=== PATIENT | male | born 1955 | race Caucasian/White ===

== ENCOUNTER → 2022-07-13 | Day surgery (SDC) | payer OTHER ==
[2022-07-09 12:12] VITALS: BMI 42.7
== END | disposition home or self-care (01) ==
LOC: FASU-ENDO 10:35
PROVIDERS: ATTEND Internal Medicine Gastroenterology
PROC: 0DJD8ZZ Inspection of Lower Intestinal Tract, Via Natural or Artificial Opening Endoscopic (ICD-10-PCS; principal; 2022-07-13)
DX: Z53.8 Procedure and treatment not carried out for other reasons (principal)

== ENCOUNTER 2022-08-17 10:03 | Day surgery (SDC) | payer OTHER ==
[2022-08-13 10:05] VITALS: BMI 42.6
[~2022-08-17 10:03] MED LIST: LACTATED RINGERS SOLUTION 1,000 ML IV SCH
[2022-08-17 11:22] VITALS: TEMP 97.3
[2022-08-17 12:45] VITALS: RESP 18
[2022-08-17 12:46] VITALS: BP 145/70; PULSE 68
== END 2022-08-17 13:11 | disposition home or self-care (01) ==
LOC: FASU-ENDO 10:03
PROVIDERS: ATTEND Internal Medicine Gastroenterology
PROC: 0DBL8ZX Excision of Transverse Colon, Via Natural or Artificial Opening Endoscopic, Diagnostic (ICD-10-PCS; 2022-08-17)
PROC: 3E0H8KZ Introduction of Other Diagnostic Substance into Lower GI, Via Natural or Artificial Opening Endoscopic (ICD-10-PCS; 2022-08-17)
PROC: 0DBK8ZX Excision of Ascending Colon, Via Natural or Artificial Opening Endoscopic, Diagnostic (ICD-10-PCS; principal; 2022-08-17 11:55)
DX: Z12.11 Encounter for screening for malignant neoplasm of colon (principal); D12.0 Benign neoplasm of cecum; D12.2 Benign neoplasm of ascending colon; K57.30 Diverticulosis of large intestine without perforation or abscess without bleeding
CPT/HCPCS: 82962; 88305-TC

== ENCOUNTER 2024-12-09 21:14 | Emergency (ER) | payer OTHER ==
[2024-12-09 21:24] VITALS: BP 148/71; PULSE 72; RESP 20; TEMP 98.8; BMI 40.8
[2024-12-09 22:57] LABS: ABSOLUTE IMMATURE GRANULOCYTES 0.03 x10^3/uL (0.0-0.031); BASOPHILS # 0.04 x10^3/uL (0.01-0.08); EOSINOPHIL % 2.4 % (0.8-7.0); EOSINOPHILS # 0.18 x10^3/uL (0.04-0.54); HEMOGLOBIN 13.8 g/dL (13.7-17.5); MCHC 32.1 g/dl (32.3-36.5); MEAN CELL VOLUME 91.5 fl (79.0-92.2); MEAN PLT VOLUME 9.9 fl (9.4-12.4); MONOCYTE # 0.52 x10^3/uL (0.30-0.82); PLATELET COUNT 225 x10^3/uL (163-337); RDW 13.2 % (12.2-16.4)
[2024-12-09 23:20] LABS: POTASSIUM 4.1 mmol/L (3.5-5.1)
[2024-12-09 23:22] LABS: ALBUMIN 3.6 g/dl (3.4-5.0); BLOOD UREA NITROGEN 14.2 mg/dL (7-18)
[2024-12-09 23:26] LABS: CREATININE 0.7 mg/dL (0.55-1.3)
[2024-12-09 23:27] LABS: BILIRUBIN,TOTAL 0.4 mg/dL (0.2-1); TOT PROT 6.4 g/dl (6.4-8.2)
[2024-12-10] MEDS: TOLNAFTATE 1% CREAM 15 GM TUBE TP SCH (00:44)
[2024-12-10 01:09] LABS: PH,URINE 5.5 (5.0-8.0); URINE APPEARANCE CLEAR; URINE BILIRUBIN NEGATIVE (NEGATIVE); URINE COLOR YELLOW; URINE GLUCOSE (UA) NEGATIVE (NEGATIVE); URINE KETONE NEGATIVE (NEGATIVE); URINE LEUK ESTERASE NEGATIVE (NEGATIVE); URINE NITRITE NEGATIVE (NEGATIVE); URINE PROTEIN NEGATIVE (NEGATIVE); URINE UROBILINOGEN 0.2 mg/dL (0.2-1.0)
== END 2024-12-10 01:06 | disposition home or self-care (01) ==
LOC: JER 21:14
DX: S30.821A Blister (nonthermal) of abdominal wall, initial encounter (principal); L73.9 Follicular disorder, unspecified; B35.1 Tinea unguium; L98.9 Disorder of the skin and subcutaneous tissue, unspecified; Z91.148 Patient's other noncompliance with medication regimen for other reason; X58.XXXA Exposure to other specified factors, initial encounter
CPT/HCPCS: 36415; 80053; 81003; 85025; 87086; 99283-25